=== PATIENT | male | born 1970 | race Caucasian/White ===

== ENCOUNTER 2021-05-29 13:10 | Emergency (ER) | payer SELFPAY ==
--- NOTE | ~2021-05-29 | XR_ITS ---
EXAMINATION: LEFT WRIST X-RAY CLINICAL INFORMATION: Dog bite COMPARISON: None TECHNIQUE: 4 views of the left wrist FINDINGS: Bone alignment is normal. No fracture or dislocation is seen. There is arthritis at the first LONGTERM joint. Joint spaces are otherwise normal. No soft tissue foreign body is seen. XR/XR hand wrist LT IMPRESSION: No fracture or foreign body seen. Arthritis at the first LONGTERM joint.
[2021-05-29 14:35] VITALS: BP 135/71; PULSE 60; RESP 16; TEMP 36.6; O2SAT 100; BMI 27.1
[2021-05-29] MEDS: Diphth,Pertus(ACell),Tet Adult 0.5 ML SYRINGE IM (15:19)
--- NOTE | 2021-05-29 15:57 | ED.ANIMALBIT ---
HPI - Animal Bite General Chief Complaint: Animal Bite Stated Complaint: dog bite Time Seen by Provider: 05/29/21 14:55 Source: patient Mode of arrival: ambulatory Limitations: no limitations History of Present Illness MD complaint: animal bite Onset (ago): day(s) (Yesterday) Animal: dog Description of animal: household pet and immunizations UTD Mechanism: bite Location - Extremities: left: hand (/wrist) Pain description: dull and constant Severity scale (1-10): >10 Context: other (While grooming the dog) Associated symptoms: erythema (And decreased range of motion to the left wrist) Treatments prior to arrival: wound dressing(s), irrigation and pressure Related Data Patient tetanus UTD: No Previous Rx's Medication Instructions Recorded acetaminophen 500 mg tablet 1,000 mg PO QID PRN #14 tab 05/29/21 (Tylenol Extra Strength) amoxicillin 875 mg-potassium 1 tab PO BID 10 Days #20 tab 05/29/21 clavulanate 125 mg tablet (Augmentin) ibuprofen 800 mg tablet 800 mg PO Q8H PRN #14 tab 05/29/21 oxycodone 5 mg tablet 5 mg PO Q6H PRN #14 tab 05/29/21 Allergies Allergy/AdvReac Type Severity Reaction Status Date / Time No Known Allergies Allergy Verified 05/29/21 14:34 Review of Systems Review of Systems: Constitutional : No Fever, No Chills, Cardiovascular : No Chest Pain, No SOB Respiratory : No Dyspnea Gastrointestinal : No abdominal pain Musculoskeletal : No Joint Swelling Skin : positive skin lacerations, No Foreign bodies, No rash, No surrounding erythema Neuro : No Weakness, No Numbness/tingling Psych : No SI/HI/thoughts of self injury Yes all other systems are reviewed and are negative [facility] Past Medical History Attestation statement: The following information was validated with the patient. Surgical History History of facial surgery Social History Social History Advance Directives: No Advance Directives Information Provided: No Physical Exam Vital Signs: Vital Signs: Last Vital Signs Temp 97.8 F 05/29/21 14:35 Pulse 60 05/29/21 14:35 Resp 16 05/29/21 14:35 BP 135/71 05/29/21 14:35 Pulse Ox 100 05/29/21 14:35 Body Mass Index 27.1 vital signs have been reviewed as normal and appeared to be correct. Blood pressure normal. Heart rate normal. Respiration rate normal. Temperature normal. Oxygen saturation normal. Appearance: Alert. Oriented X3. No acute distress. Head: Normal external exam. Normocephalic. Atraumatic. Eyes: PERRLA. EOMI. Conjunctiva and sclera normal. Eyelids normal. ENT:Pharynx normal. Uvula midline. Moist mucous membranes. Neck: Normal inspection. Neck supple. FROM. No adenopathy. No meningeal signs. CVS: Normal heart rate and rhythm. Respiratory: No respiratory distress. Painless inspiration. Back: Full range of motion noted. No rashes/lesion/induration/fluctuance or signs of infection noted. Skin: Skin warm and dry. Normal skin color. Normal skin turgor. No rashes/lesions/lacerations noted. Extremities: To left hand at the radial and ulnar aspect of the wrist patient has dog bites noted with mild surrounding erythema and soft tissue swelling with limited range of motion due to pain and swelling to the left wrist. No obvious ligamentous injury. No obvious tendon injury. No fluctuance/induration/purulent drainage/foreign bodies noted. Otherwise all other extremities exhibit normal range of motion and nontender. Neuro: Oriented X 3. No motor deficit. No sensory deficit. Reflexes normal. Normal steady gait. No focal neuro deficits noted. Vascular: + radial pulses Normal cap refill. No cyanosis noted to upper extremity nails Course Course Course Narrative: 50-year-old male presenting to the ED 2 days after he was bit by his neighbor's dog while he was grooving it. The dog is up-to-date on all immunizations. Patient reports he is not up-to-date on tetanus. On exam patient noted to have bite stephanie wound/puncture wounds to the left wrist with mild surrounding erythema and limited range of motion on flexion/extension and ulnar/radial range of motion to the left wrist due to pain/swelling. No fluctuance/induration/purulent drainage noted or foreign bodies noted. X-ray obtained and negative for any acute processes. Will place in a wrist splint. Will DC home with antibiotics and symptomatic treatment referral to follow-up with the hand surgeon Dr. Desouza's within this week. Patient understands agrees with this plan. MDM - Animal Bite Medical Records Attestation: I reviewed the patient's medical records. Imaging Data Left wrist x-ray: Attestation: I personally reviewed and interpreted this imaging study as follows: Radiologist's impression: FINDINGS: Bone alignment is normal. No fracture or dislocation is seen. 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 Joint spaces are otherwise normal. No soft tissue foreign body is seen.? XR/XR hand wrist LT IMPRESSION: No fracture or foreign body seen. Arthritis at the first MCFP joint.? Procedures Orthopedic Splinting/Casting Injury #1: Side: left Upper Extremity Injury Location: forearm, wrist and hand Upper Extremity Immobilizer: wrist splint Discharge Plan Discharge Clinical Impression: Dog bite, Cellulitis Patient Disposition: Home, Self-Care Instructions: Animal Bite (ED), Cellulitis (ED), Warm Compress or Soak (ED) Prescriptions: New ibuprofen 800 mg tablet 800 mg PO Q8H PRN (Reason: pain) Qty: 14 RF: 0 acetaminophen [Tylenol Extra Strength] 500 mg tablet 1,000 mg PO QID PRN (Reason: fever or pain) Qty: 14 RF: 0 amoxicillin-pot clavulanate [Augmentin] 875-125 mg tablet 1 tab PO BID 10 Days Qty: 20 RF: 0 oxycodone 5 mg tablet 5 mg PO Q6H PRN (Reason: pain) Qty: 14 RF: 0 Referrals: Lorenza Malone MD [Physician] - 2 days (Call tomorrow to make a follow-up appointment within this week for the dog bite) Stand Alone Forms: Work/School Release Print Language: Serbian
--- NOTE | 2021-05-29 16:47 | PC.NURSE ---
ANIMAL BITE REPORT FAXED TO [facility]
== END 2021-05-29 16:36 | disposition home or self-care (01) ==
PROVIDERS: Emergency Provider Emergency Medicine Emergency Medical Services
DX: S59.912A Unspecified injury of left forearm, initial encounter (principal); S60.872A Other superficial bite of left wrist, initial encounter; L03.114 Cellulitis of left upper limb; W54.0XXA Bitten by dog, initial encounter; Y93.9 Activity, unspecified; Y92.9 Unspecified place or not applicable; Y99.9 Unspecified external cause status
CPT/HCPCS: 29125; 73110; 73130; 90471; 90715; 99284